=== PATIENT | male | born 1955 | race Hispanic/Latino ===

== ENCOUNTER 2022-04-27 10:25 | Emergency (ER) | payer MEDICARE, MEDICAID ==
[~2022-04-27] VITALS: Ht 172.7 cm; Wt 83.9 kg
[2022-04-27 10:34] VITALS: BP 121/67
[2022-04-27 11:13] LABS: HEMATOCRIT 32.9 % (39.0-50.0); HEMOGLOBIN 11.2 g/dl (14.0-18.0); IMMATURE GRANULOCYTES 1.6 % (0.0-5.0); MEAN CORPUSCULAR HGB 32.7 pG CALC (26.0-32.0); NEUT# 18.29 thou/uL (1.82-7.42); RED BLOOD COUNT 3.43 mill/uL (4.70-6.10); RED CELL DISTRI WIDTH 13.6 % (11.5-15.5)
[2022-04-27 11:14] LABS: MEAN CELL VOLUME 95.9 fL CALC (80.0-100.0)
[2022-04-27 11:24] LABS: BILIRUBIN, TOTAL 2.3 mg/dL (0.0-1.4); CREATININE 2.5 mg/dL (0.7-1.3); POTASSIUM 4.3 mmol/l (3.5-5.1); TOTAL PROTEIN 6.8 g/dL (6.3-8.2)
[2022-04-27 11:36] LABS: URINE BLOOD DIPSTICK LARGE (NEGATIVE); URINE GLUCOSE - DIPSTICK NEGATIVE (NEGATIVE); URINE KETONE TRACE mg/dL (NEGATIVE); URINE PH 5.5 (4.5-8.0); URINE PROTEIN - DIPSTICK TRACE mg/dL (NEG-TRACE); URINE SPECIFIC GRAVITY 1.025
[2022-04-27 11:38] LABS: URINE BILIRUBIN - DIPSTICK MODERATE (NEGATIVE)
[2022-04-27 11:39] VITALS: BP 102/59
[2022-04-27 11:39] LABS: URINE COLOR DK. YELLOW; URINE LEUK ESTERASE MODERATE (NEGATIVE); URINE NITRITE - DIPSTICK NEGATIVE (Negative)
[2022-04-27 11:43] LABS: URINE BACTERIA FEW hpf; URINE SQUAMOUS EPITHELIAL CELL FEW EPI/hpf (0-FEW); URINE WBC >100 WBC/hpf (0-5)
[2022-04-27 12:00] VITALS: BP 107/63
[2022-04-27] MEDS ORDERED: OMNI-PAC300 MG PO (12:27)
[2022-04-27] MEDS ORDERED: PYRIDIUM200 MG PO (12:27)
[2022-04-27 12:30] VITALS: BP 117/56
[2022-04-27 13:00] VITALS: BP 101/57
[2022-04-27 13:30] VITALS: BP 96/48
== END 2022-04-27 13:36 | disposition home or self-care (01) ==
LOC: ED 10:25
PROVIDERS: Internal Medicine
DX: N39.0 Urinary tract infection, site not specified (principal); B96.20 Unspecified Escherichia coli [E. coli] as the cause of diseases classified elsewhere; K74.60 Unspecified cirrhosis of liver; E86.0 Dehydration; K80.20 Calculus of gallbladder without cholecystitis without obstruction; F17.210 Nicotine dependence, cigarettes, uncomplicated

== ENCOUNTER 2024-08-26 13:18 | Emergency (ER) | payer MEDICARE, MEDICAID ==
[~2024-08-26] VITALS: Ht 172.7 cm; Wt 127.0 kg
[~2024-08-26 13:18] MED LIST: METFORMIN HCL500 M1 PO; OMNI-PAC300 MG PO; PYRIDIUM200 MG PO; [UNRECOGNIZED DRUG - REMARK]
[2024-08-26 13:27] VITALS: BP 139/63
[2024-08-26 13:30] VITALS: BP 134/59
[2024-08-26 13:56] LABS: BASO% 0.1 % (0-3); HEMATOCRIT 34.6 % (39.0-50.0); IMMATURE GRANULOCYTES 0.4 % (0.0-5.0); LYMPH% 3.8 % (15-41); MEAN CELL VOLUME 101.8 fL CALC (80.0-100.0); MEAN CORPUSCULAR HGB 31.5 pG CALC (26.0-32.0); MEAN CORPUSCULAR HGB CONC 30.9 g/dL CAL (32.0-36.0); MONO% 4.1 % (2-13); NEUT# 20.73 thou/uL (1.82-7.42); NEUT% 91.6 % (42-76); RED BLOOD COUNT 3.4 mill/uL (4.70-6.10); RED CELL DISTRI WIDTH 14.5 % (11.5-15.5)
[2024-08-26 14:01] VITALS: BP 136/58
[2024-08-26 14:05] LABS: ALBUMIN 3.6 g/dL (3.2-5.0); POTASSIUM 4.5 mmol/l (3.5-5.1); TOTAL PROTEIN 8.3 g/dL (6.3-8.2)
[2024-08-26] MEDS ORDERED: FUROSEMIDE 40 MG/4 ML SDV IV ONE (14:05)
[2024-08-26 14:06] LABS: BILIRUBIN, TOTAL 4.3 mg/dL (0.2-1.3); CREATININE 2.5 mg/dL (0.7-1.3)
[2024-08-26 14:09] LABS: HEMOGLOBIN 10.7 g/dl (14.0-18.0)
[2024-08-26] MEDS ORDERED: ONDANSETRON HCl 4 MG/2 ML SDV IV ONE (14:10)
[2024-08-26] MEDS ORDERED: SODIUM CHLORIDE 0.9% 1,000 ML IV ONE (14:10)
[2024-08-26 14:18] LABS: INTERNATIONAL NORMALIZED RATIO 1.4 RATIO (0.7-1.3)
[2024-08-26 14:19] LABS: PROTHROMBIN TIME 14.9 SECONDS (9.0-12.5)
[2024-08-26 14:47] VITALS: BP 123/87
[2024-08-26] MEDS ORDERED: diazePAM 10 MG/2 ML VIAL IV ONE (15:00)
[2024-08-26 15:07] VITALS: BP 121/54
[2024-08-26 15:20] VITALS: BP 115/57
== END 2024-08-26 15:47 | disposition short-term general hospital (02) ==
LOC: ED 13:18
PROVIDERS: Emergency Medicine
DX: R06.03 Acute respiratory distress (principal); E87.70 Fluid overload, unspecified; K74.60 Unspecified cirrhosis of liver; R18.8 Other ascites; E11.9 Type 2 diabetes mellitus without complications; Z79.4 Long term (current) use of insulin; Z79.84 Long term (current) use of oral hypoglycemic drugs; Z20.822 Contact with and (suspected) exposure to COVID-19
CPT/HCPCS: J1940; J2405; J3360